=== PATIENT | female | born 1970 | race Caucasian/White ===

== ENCOUNTER 2017-02-20 05:01 | Day surgery (SDC) | payer MEDICARE, SELFPAY ==
[2017-02-20] MEDS ORDERED: KLONOPIN0.5 M1 PO (05:21)
[2017-02-20] MEDS ORDERED: [UNRECOGNIZED DRUG - OTHER] PO (05:22)
[2017-02-20 05:39] LABS: INR 0.8 INR (0.9-1.1); PROTHROMBIN TIME 9.6 SECONDS (9.0-13.6)
[2017-02-20 05:43] LABS: PREGNANCY-SERUM NEGATIVE (NEGATIVE)
[2017-02-20 05:49] LABS: ANION GAP 17 mmol/L (0-20); BASO % 1.1 % (0-2); BASO ABSOLUTE COUNT 0.1 tho/cmm (0.0-0.2); BLOOD UREA NITROGEN 11 mg/dl (6-24); CALCIUM 8.7 mg/dl (8.5-10.5); CARBON DIOXIDE-VENOUS 23 mmol/L (22-32); CHLORIDE 103 mmol/l (96-110); CREATININE 0.79 mg/dl (0.50-1.10); EOS % 3.5 % (0-7); EOSINOPHIL ABSOLUTE COUNT 0.2 tho/cmm (0.0-0.7); GLUCOSE 98 mg/dL (70-110); HCT-HEMATOCRIT 34.2 % (34.0-49.0); HGB-HEMOGLOBIN 11.4 gm/dl (12.0-15.5); IMMATURE GRANULOCYTES ABSOLUTE 0.01 tho/cmm (0-0.03); IMMATURE GRANULOCYTES PERCENT 0.2 % (0-0.3); LYMPH ABSOLUTE COUNT 1.8 tho/cmm (0.8-4.5); MCH (MEAN CORPUSCULAR HGB) 31.5 pg (28.0-32.0); MCHC MEAN CORPUSCULAR HGB CONC 33.3 % (32.0-36.0); MCV (MEAN CELL VOLUME) 94.5 fl (82.0-96.0); MEAN PLATELET VOLUME 10.5 cmc (9.4-12.4); MONO % 8.4 % (0-12); MONOCYTE ABSOLUTE COUNT 0.5 tho/cmm (0.0-1.2); NEUTROPHIL ABSOLUTE COUNT 3.7 tho/cmm (1.6-8.0); NEUTROPHIL-AUTOMATED 3.7 tho/cmm (1.6-8.0); NEUTROPHILS % 57.8 % (40-80); PLATELET COUNT 308 tho/cmm (150-450); POTASSIUM 3.5 mmol/L (3.7-5.1); RED BLOOD COUNT 3.62 mil/cmm (4.00-5.20); RED CELL DISTRIBUTION WIDTH 15.2 % (12.4-16.4); SODIUM 139 mmol/L (135-145); WHITE BLOOD COUNT 6.3 tho/cmm (4.0-10.0); eGFR VALUE FOR BLACK >90 mL/Min
== END 2017-02-20 17:10 ==
LOC: EDMED 05:01 → SRG 07:30 → PACU 10:42 → OBGE 11:55
PROVIDERS: Emergency Medicine
PROC: 0UDB8ZZ Extraction of Endometrium, Via Natural or Artificial Opening Endoscopic (ICD-10-PCS; principal; 2017-02-20)
DX: C54.1 Malignant neoplasm of endometrium (principal); I10 Essential (primary) hypertension; K21.9 Gastro-esophageal reflux disease without esophagitis; F10.10 Alcohol abuse, uncomplicated; Z79.899 Other long term (current) drug therapy; Z98.890 Other specified postprocedural states
CPT/HCPCS: J2060; J2270; J2405; J3010; J7030